=== PATIENT | male | born 1945 | race Caucasian/White ===

== ENCOUNTER 2016-12-18 18:11 | Emergency (ER) | payer MEDICARE, OTHER ==
[2017-03-13] MEDS ORDERED: MUCINEX 600MG600 MG PO (15:17)
[2017-03-13] MEDS ORDERED: LEVAQUIN750 MG PO (15:20)
[2017-03-13] MEDS ORDERED: PREDNISONE (15:20)
[2017-03-13] MEDS ORDERED: WELLBUTRIN XL150 MG PO (15:21)
[2017-03-13] MEDS ORDERED: ASPIRIN325 MG PO (15:21)
[2017-03-13] MEDS ORDERED: ALLOPURINOL300 MG PO (15:21)
[2017-03-13] MEDS ORDERED: CARBIDOPA-LEVO1 EAC6 PO (15:21)
[2017-03-13] MEDS ORDERED: DIGITEK125 MCG PO (15:22)
[2017-03-13] MEDS ORDERED: COREG 3.125M3.125 MG PO (15:22)
[2017-03-13] MEDS ORDERED: NEURONTIN300 MG PO (15:22)
[2017-03-13] MEDS ORDERED: PROSCAR5 MG PO (15:22)
[2017-03-13] MEDS ORDERED: PRAVACHOL20 MG PO (15:23)
[2017-03-13] MEDS ORDERED: PAXIL20 MG PO (15:23)
[2017-03-13] MEDS ORDERED: FLOMAX0.4 MG PO (15:23)
[2017-03-13] MEDS ORDERED: HYDROCODONE-APA1 TAB PO (15:23)
[2017-03-13] MEDS ORDERED: MONTELUKAST SOD10 MG PO (15:23)
[2017-03-13] MEDS ORDERED: ZESTRIL2.5 MG PO (15:23)
[2017-03-13] MEDS ORDERED: OFEV150 MG PO (15:24)
== END 2016-12-18 21:05 | disposition home or self-care (01) ==
LOC: FER 18:11
DX: M79.604 Pain in right leg (principal); I10 Essential (primary) hypertension; I25.10 Atherosclerotic heart disease of native coronary artery without angina pectoris; Z87.09 Personal history of other diseases of the respiratory system; Z79.899 Other long term (current) drug therapy
CPT/HCPCS: 93971

== ENCOUNTER 2017-03-03 15:46 | Emergency (ER) | payer MEDICARE, OTHER | END 2017-03-03 19:15 | disposition home or self-care (01) | LOC: FER 15:46 | DX: M25.551 Pain in right hip (principal); M54.41 Lumbago with sciatica, right side; I10 Essential (primary) hypertension; Z95.1 Presence of aortocoronary bypass graft; Z88.0 Allergy status to penicillin; Z79.82 Long term (current) use of aspirin; Z79.899 Other long term (current) drug therapy | CPT/HCPCS: 73502; J1100; J2270 ==